=== PATIENT | male | born 1965 | race Caucasian/White ===

== ENCOUNTER 2017-06-30 19:47 | Emergency (ER) | payer BC, OTHER ==
[2017-06-30] MEDS ORDERED: Sodium Chloride 0.9% 1,000 ML IV ONE (20:17)
--- NOTE | 2017-06-30 20:21 | C.PDOC ---
History Of Present Illness 51 y/o male presents to ED with complaints of mid abdominal pain worse for the "last few days" radiating to back. Patient reports symptoms " similar to something that happened years ago" but is unsure of the diagnosis at that time. Patient reports he saw his PMD who sent to ED for further evaluation. Patient denies fever, chills, diarrhea, vomiting, urinary symptoms or any other complaints at this time. Time Seen by Provider: 06/30/17 20:07 Chief Complaint (Nursing): Abdominal Pain History Per: Patient History/Exam Limitations: no limitations Onset/Duration Of Symptoms: Days Current Symptoms Are (Timing): Still Present Past Medical History Reviewed: Historical Data, Nursing Documentation, Vital Signs Vital Signs: Last Vital Signs Temp 97.4 F L 06/30/17 22:47 Pulse 60 06/30/17 22:47 Resp 18 06/30/17 22:47 BP 103/66 06/30/17 22:47 Pulse Ox 99 06/30/17 22:47 Surgical History: Endoscopy Family History: States: No Known Family Hx - Social History Hx Alcohol Use: No Hx Substance Use: No - Immunization History Hx Tetanus Toxoid Vaccination: No Hx Influenza Vaccination: No Hx Pneumococcal Vaccination: No Review Of Systems Except As Marked, All Systems Reviewed And Found Negative. Constitutional: Negative for: Fever, Chills Gastrointestinal: Positive for: Abdominal Pain. Negative for: Nausea, Vomiting , Diarrhea Genitourinary: Negative for: Dysuria, Frequency, Hematuria Musculoskeletal: Positive for: Back Pain Skin: Negative for: Rash Neurological: Negative for: Weakness, Numbness Physical Exam - Physical Exam Appears: Non-toxic, No Acute Distress Skin: Normal Color, Warm, Dry, No Rash Head: Atraumatic, Normacephalic Eye(s): bilateral: Normal Inspection Oral Mucosa: Moist Neck: Normal ROM, Supple Chest: Symmetrical Cardiovascular: Rhythm Regular, No Murmur Gastrointestinal/Abdominal: Soft, Tenderness (Non focal ), No Guarding, No Rebound Back: No CVA Tenderness Neurological/Psych: Oriented x3 Gait: Steady ED Course And Treatment - Laboratory Results Result Diagrams: 06/30/17 20:32 06/30/17 20:32 O2 Sat by Pulse Oximetry: 99 (RA) Pulse Ox Interpretation: Normal Medical Decision Making Medical Decision Making: abdomianl pain- r/o gastritis colitis, uti Plan: * Blood work * UA * IV fluids * Medications 1100: pt reassesed: discussed with dr clark. requests cpk to be added as previous ?h/o of rhabdo - cpk added. <1999. acute rhabdo less likely. advise outpt f/u and return precautions Disposition - Disposition Referrals: Guille Clark MD [Staff Provider] - Disposition Time: 23:10 Condition: STABLE Additional Instructions: please follow up with your doctor. return to er with worsening symptoms or concerns. Instructions: Acute Abdominal Pain (ED) Forms: [employer] (Spanish) - Clinical Impression Clinical Impression: Abdominal pain - Scribe Statement The provider has reviewed the documentation as recorded by the Scribe Kiarra Michel All medical record entries made by the Scribe were at my direction and personally dictated by me. I have reviewed the chart and agree that the record accurately reflects my personal performance of the history, physical exam, medical decision making, and the department course for this patient. I have also personally directed, reviewed, and agree with the discharge instructions and disposition.
[2017-06-30 20:30] VITALS: RESP 18; O2SAT 99
[2017-06-30 20:38] LABS: BASO % 0.4 % (0.0-2.0); EOS # 0.1 K/uL (0.0-0.7); EOS % 1.3 % (0.0-4.0); HEMATOCRIT 40.6 % (35.0-51.0); LYMPH # 2.7 K/uL (1.0-4.3); LYMPH % 29.4 % (20.0-40.0); MEAN CELL VOLUME 90.6 fL (80.0-94.0); MEAN CORPUSCULAR HEMOGLOBIN 30.9 pg (27.0-31.0); MEAN CORPUSCULAR HGB CONC 34.1 g/dL (33.0-37.0); MEAN PLATELET VOLUME 8.8 fL (7.2-11.7); MONO # 0.6 K/uL (0.0-0.8); RBC URINE < 1 /hpf (0-3); RED CELL DISTRIBUTION WIDTH 13.7 % (11.5-14.5); URINE BILIRUBIN NEGATIVE (NEGATIVE); URINE BLOOD NEGATIVE (NEGATIVE); URINE COLOR Yellow (YELLOW); URINE GLUCOSE (UA) NORMAL (Normal); URINE KETONE NEGATIVE (NEGATIVE); URINE LEUKOCYTE ESTERASE NEG Leu/uL (Negative); URINE PROTEIN NEGATIVE (NEGATIVE); URINE UROBILINOGEN NORMAL mg/dL (0.2-1.0); WBC URINE 2 /hpf (0-5); WHITE BLOOD COUNT 9.2 K/uL (4.8-10.8)
[2017-06-30 20:53] LABS: INR 1.2
[2017-06-30 20:59] LABS: CHLORIDE 103 mmol/L (98-107)
[2017-06-30 21:00] LABS: POTASSIUM 3.7 mmol/L (3.6-5.2); SODIUM 143 mmol/L (132-148)
[2017-06-30 21:02] LABS: AST/SGOT 38 U/L (17-59); BILIRUBIN,TOTAL 0.5 mg/dL (0.2-1.3); CARBON DIOXIDE 30 mmol/L (22-30); GFR AFRICAN-AMERICAN > 60
[2017-06-30 21:03] LABS: ALB/GLOB RATIO 1.4 (1.0-2.1); ALKALINE PHOSPHATASE 57 U/L (38-126); ALT/SGPT 45 U/L (21-72); BLOOD UREA NITROGEN 15 mg/dL (9-20); CALCIUM 8.8 mg/dl (8.6-10.4); GLUCOSE,RANDOM 89 mg/dL (75-110)
[2017-06-30] MEDS ORDERED: Iodixanol 320 MG/ML 100 ML BOTTLE IV ONE (21:24)
--- NOTE | 2017-06-30 22:38 | CT ---
EXAM: CT Abdomen and Pelvis With Intravenous Contrast CLINICAL HISTORY: 51 years old, male; Pain; Abdominal pain; Localized; Upper; Additional info: Abd pain TECHNIQUE: Axial computed tomography images of the abdomen and pelvis with intravenous contrast. All CT scans at this facility use one or more dose reduction techniques, viz.: automated exposure control; ma/kV adjustment per patient size (including targeted exams where dose is matched to indication; i.e. head); or iterative reconstruction technique. Coronal and sagittal reformatted images were created and reviewed. CONTRAST: 100 mL of visipaque 320 administered intravenously. COMPARISON: No relevant prior studies available. FINDINGS: Lower thorax: There is minimal bibasilar atelectasis. ABDOMEN: Liver: There are no focal liver lesions present. Gallbladder and bile ducts: The gallbladder is contracted but otherwise normal. No calcified stones. No ductal dilation. Pancreas: Pancreas is slightly fatty replaced. No ductal dilation. Spleen: The spleen is normal. Adrenals: The adrenal glands are normal. Kidneys and ureters: The kidneys are normal. No hydronephrosis. Stomach and bowel: The stomach is normal. There is mild constipation the proximal colon. There is no evidence of intestinal obstruction. No mucosal thickening. Appendix: A normal appendix is identified. PELVIS: Bladder: Bladder is decompressed. Reproductive: Prostate is prominent measuring 5.0 CM transverse. ABDOMEN and PELVIS: Intraperitoneal space: There is no evidence of free intraperitoneal fluid. There is no free intraperitoneal air. Bones/joints: There are mild degenerative changes present. No acute fracture. No dislocation. Soft tissues: Unremarkable. Vasculature: The aorta demonstrates mild atherosclerotic calcification. No abdominal aortic aneurysm. Lymph nodes: There is no evidence of lymphadenopathy. IMPRESSION: No acute findings.
[2017-06-30 22:48] VITALS: BP 103/66; PULSE 60; TEMP 97.4
== END 2017-06-30 23:31 | disposition home or self-care (01) ==
LOC: C.ER 19:47
DX: R10.9 Unspecified abdominal pain (principal)
CPT/HCPCS: 74177; 80053; 81001; 82550; 83690; 85025; 85610; 85730; 96361; 96374; 99284; J1885; J7040; Q9967

== ENCOUNTER 2017-07-01 21:52 | Emergency (ER) | payer BC ==
[2017-07-01 22:00] VITALS: BP 117/74; PULSE 63; RESP 16; TEMP 97.7; O2SAT 98
--- NOTE | 2017-07-01 22:36 | C.PDOC ---
History Of Present Illness 51y/o male presents to the ED for evaluation of a rash which he noted this morning. Patient states he was seen in [facility] last night for complaints of abdominal pain. During his visit, patient underwent a CT scan with PO and IV contrast. Patient states he took Ibuprofen earlier today, but notes he has taken the medicine before without any symptoms. Patient denies fever, chills, itchiness, trouble breathing or difficulty with swallowing. Time Seen by Provider: 07/01/17 22:28 Chief Complaint (Nursing): Abnormal Skin Integrity History Per: Patient History/Exam Limitations: no limitations Onset/Duration Of Symptoms: Hrs Current Symptoms Are (Timing): Still Present Quality Of Symptoms: denies: Itching Additional History Per: Patient Past Medical History Reviewed: Historical Data, Nursing Documentation, Vital Signs Vital Signs: Last Vital Signs Temp 97.7 F 07/01/17 21:56 Pulse 63 07/01/17 21:56 Resp 16 07/01/17 21:56 BP 117/74 07/01/17 21:56 Pulse Ox 98 07/01/17 23:35 - Medical History PMH: No Chronic Diseases Surgical History: Endoscopy Family History: States: Unknown Family Hx - Social History Hx Alcohol Use: No Hx Substance Use: No - Immunization History Hx Tetanus Toxoid Vaccination: No Hx Influenza Vaccination: No Hx Pneumococcal Vaccination: No Review Of Systems Constitutional: Negative for: Fever, Chills Respiratory: Negative for: Cough, Shortness of Breath, Wheezing Skin: Positive for: Rash (non-pruritic ) Physical Exam - Physical Exam Appears: Non-toxic, No Acute Distress Skin: Warm, Dry, Rash (mildly erythematous, fine papular rash to central chest region and to anterior aspect of upper arms bilaterally ) Head: Atraumatic, Normacephalic Eye(s): bilateral: Normal Inspection Oral Mucosa: Moist Throat: Normal, No Erythema, No Exudate Neck: Normal ROM, Supple Chest: Symmetrical, No Deformity, No Tenderness Cardiovascular: Rhythm Regular, No Murmur Respiratory: Normal Breath Sounds, No Rales, No Rhonchi, No Wheezing Extremity: Normal ROM, Capillary Refill (less than 2 seconds ) Neurological/Psych: Oriented x3, Normal Speech, Normal Cognition Gait: Steady ED Course And Treatment O2 Sat by Pulse Oximetry: 98 (on RA) Pulse Ox Interpretation: Normal Medical Decision Making Medical Decision Making: Impression: 51y/o male with rash Progress: Patient states the rash is nonpruritic. Unclear if rash may be related to the contrast that he received during his ED visit yesterday. On reassessment, patient is resting comfortably, showing no signs of respiratory distress and is stable for discharge. Patient is advised to follow up with his PMD within 1-2 days for further evaluation and/or return to the ED if symptoms worsen. Disposition Counseled Patient/Family Regarding: Diagnosis, Need For Followup, Rx Given - Disposition Referrals: Guille Clark MD [Staff Provider] - Disposition: HOME/ ROUTINE Disposition Time: 22:33 Condition: STABLE Additional Instructions: Take Benadryl (diphenhydramine) as prescribed, may make you sleepy. Follow up with Dr Clark tomorrow. Return for worsening rash, fever, or any other concerning symptoms. Prescriptions: DiphenhydrAMINE [Benadryl] 25 mg PO Q6 #20 cap Instructions: Acute Rash (ED) Forms: [facility] (Azeri), General Discharge Instructions - Clinical Impression Clinical Impression: Rash and nonspecific skin eruption - PA / [employer] / Resident Statement MD/DO has reviewed & agrees with the documentation as recorded. - Scribe Statement The provider has reviewed the documentation as recorded by the Scribe (Jacque Maurer) All medical record entries made by the Scribe were at my direction and personally dictated by me. I have reviewed the chart and agree that the record accurately reflects my personal performance of the history, physical exam, medical decision making, and the department course for this patient. I have also personally directed, reviewed, and agree with the discharge instructions and disposition.
== END 2017-07-01 22:57 | disposition home or self-care (01) ==
LOC: C.ER 21:52
DX: R21 Rash and other nonspecific skin eruption (principal)